=== PATIENT | female | born 1955 | race Two or more races ===

== ENCOUNTER 2025-10-24 09:29 | Emergency (ER) | payer MEDICARE, MEDICAID, SELFPAY ==
[2025-10-24 09:30] VITALS: BMI 25.6
[2025-10-24 09:40] VITALS: BP 133/84; PULSE 100; RESP 18; TEMP 36.6; O2SAT 97
--- NOTE | 2025-10-24 09:59 | PD.EDRME ---
Rapid Medical Screening Exam RME Chief Complaint: Eye Problems Time Seen by Provider: 10/24/25 09:48 Vital signs: Vital Signs Temperature 97.8 F 10/24/25 09:40 Pulse Rate 100 10/24/25 09:40 Respiratory Rate 18 10/24/25 09:40 Blood Pressure 133/84 H 10/24/25 09:40 Pulse Oximetry (%) 97 10/24/25 09:40 Oxygen Delivery Method Room Air 10/24/25 09:40 Exam: error Clinical Impression: error Review of System (Uro) Const All systems reviewed & no additional complaints except as documented
--- NOTE | 2025-10-24 12:50 | PC.CC ---
Addendum entered by Yanick Brown RN 10/24/25 13:46: 1330: spoke to ED ELLIOTT Montes De Oca, transfer request status update provided. Ed tracker and notes with outpatient information. Addendum entered by Yanick Brown RN 10/24/25 13:28: 1317: Camilla ramírez/ EILEEN WARREN called back. She spoke to CHRISTOPHER Asher for EMTALA. Peer to peer w/ Dr. Shah completed. Pt to f/u with him on Sunday as outpatient. Pt to call [phone] on Sunday. Address is [address] [place], [place] [address] [place], no ophthal service 1259: spoke to Gulshan desiree/ [facility], no ophthal service 1258: called [facility], left 1256: Lara ramírez/ KELVIN no ophthal service Original Note: 1237: called [facility], left VM 1236: called [facility], left VM 1236: Clinicals sent to [facility], NEHEMIAH, , [facility] 1233: received call from Baldemar Asher for transfer request for ophtalmology for poss retinal detachment.
--- NOTE | 2025-10-24 12:55 | EDNOTE_ITS ---
<Statement entered by Maria G Ornelas MD - 10/24/25 17:38> As co-signing physician, I was present and available for consult prn. I concur with the plan and care as documented by the midlevel provider. ED Eye Problem RME/HPI General Chief complaint: Eye Problems Stated complaint: RIGHT BLURRED VISION SINCE WED Time Seen by Provider: 10/24/25 09:48 Arrival date/time: 10/24/25 09:29 RME / HPI RME / HPI Narrative: 70-year-old female who is complaining of right eye blurriness which started 5 days ago relatively painless associated with visual changes which she describes as looking through a telescope, seeing shadows and a curtain closing. Denies fever, rash, speech changes, vertigo, chest pain, shortness of breath, headache, nausea, vomiting, numbness, tingling, weakness. Patient has a past medical history of hypertension, diabetes Related Data Home Medications ?Medication ?Instructions ?Recorded ?Confirmed Cyclobenzaprine * (FLEXERIL *) ##90 07/15/15 Hydrocodone Bit/Acetaminophen ##90 07/15/15 (Hydrocodone-Apap 5/325 Tablet) Multivitamins * (CENTRUM *) 1 tab PO QDAY #0 tabs 01/24 aripiprazole 10 mg tablet (Abilify) ##30 07/15/15 lisinopril 20 mg tablet ##30 07/15/15 paroxetine HCl 10 mg tablet ##30 07/15/15 doxycycline hyclate 100 mg capsule 100 mg PO BID #0 ca ps 07/29/15 (Vibramycin) metronidazole 250 mg tablet 250 mg PO QID #0 mg (Flagyl) Previous Rx's ?Medication ?Instructions ?Recorded albuterol sulfate 90 mcg/actuation 2 puff inhalation Q 6H PRN 10/29/23 aerosol inhaler (Ventolin HFA) shortness of breath or wheezing #8.5 grams benzonatate 100 mg capsule 100 mg PO TID #14 caps 10/12 07/04 Allergies Allergy/AdvReac Type Severity Reaction Status Date / Time No Known Allergies Allergy Unverified 10/24/25 11:50 ED Exam Narrative Physical exam: Constitutional: Patient alert and oriented. Well appearing. No acute distress. Not toxic appearing. Head: Normocephalic, atraumatic. Eyes: Tonometry: 12 mmHG is IOP for the right eye. Periorbital regions normal to inspection and palpation bilaterally unless otherwise noted. Conjunctiva clear bilaterally unless otherwise noted. Sclera anicteric bilaterally. Pupils equal, round, and reactive to light bilaterally. Extraocular movements intact bilaterally. Visual felipe intact by confrontation bilaterally. No gross hyphema or hypopyon bilaterally. No globe tenderness to palpation bilaterally. Mouth/Throat: Mucous membranes moist. No stridor or muffled voice. No trismus. Handling secretions without difficulty. Airway widely patent. Neck: Supple. Trachea midline. No JVD. No nuchal rigidity. Normal range of motion. Respiratory: Normal effort. No accessory muscle use or respiratory distress. Lungs clear to auscultation bilaterally without rhonchi, wheezes, or crackles. Cardiovascular: RRR. Normal S1/S2. No murmurs or rubs. Radial pulses intact bilaterally. Abdomen: Soft. Non-distended. Non-tender throughout. No pulsatile mass. No guarding or rebound. Negative Emanuel?s sign. Negative McBurney?s point tenderness. Negative Rovsing?s. Back: No midline tenderness or step-offs. No CVA tenderness to palpation bilaterally. Upper Extremities: No gross deformities. Lower Extremities: No gross deformities. No edema or calf tenderness. Neuro: Speech normal. No gross motor or sensory deficits to upper or lower extremities bilaterally. GCS 15. CN II?XII grossly intact. Skin: Warm, dry, normal color. Psych: Normal affect. Cooperative. Normal insight. Course Quality Measures none Orders Category Date Time Status CT Screening NOW Care 10/24/25 13:06 Active EKG (ED ONLY) *Do not use* NOW Care 10/24/25 13:06 Completed Insert IV NOW Care 10/24/25 13:05 Active Insert IV NOW Care 10/24/25 13:50 Completed Slit Lamp to Bedside X1 Care 10/24/25 10:02 Active Tonometer to Bedside X1 Care 10/24/25 12:25 Completed Visual Acuity NOW Care 10/24/25 10:02 Completed Visual Acuity NOW Care 10/24/25 12:25 Completed Referral - Affiliate Manager Stat Cons 10/24/25 12:[address] angio carotid w head w Stat Exams 10/24/25 13:07 Completed EKG (ED Only) Stat Exams 10/24/25 13:05 Draft C-Reactive Protein Stat Lab 10/24/25 13:48 Completed CBC Stat Lab 10/24/25 13:48 Completed CMP [Comprehensive Metabolic Panel] Stat Lab 10/24/25 13:48 Completed INR [Prothrombin Time with INR] Stat Lab 10/24/25 13:48 Completed Sed Rate (ESR) Stat Lab 10/24/25 13:48 Completed Fluorescein Sodium [Bio-Janice] Med 10/24/25 12:05 Discontinued 1 mg RIGHT EYE X1 ONE Proparacaine Op Lis 0.5% [Alcaine Op Lis 0.5%] Med 10/24/25 11:49 Discontinued See Dose Instructions RIGHT EYE X1 ONE Reevaluation(s) Reevaluation #1: At the time of reassessment prior to discharge, the patient remains alert and oriented ?3 with GCS 15. Vitals are normal, pain is controlled, and the patient is tolerating oral intake without nausea or vomiting. The patient is agreeable to discharge and verbalizes understanding of the diagnosis, studies, treatment plan, medications (including side effects/precautions), and strict ER return precautions as discussed in the ED. All concerns were addressed, and the patient is comfortable with the plan. Time: 17:03 Vital Signs Vital signs: Vital Signs Temperature 97.8 F 10/24/25 09:40 Pulse Rate 100 10/24/25 09:40 Respiratory Rate 18 10/24/25 09:40 Blood Pressure 133/84 H 10/24/25 09:40 Pulse Oximetry (%) 97 10/24/25 09:40 Oxygen Delivery Method Room Air 10/24/25 09:40 PROCEDURES: EKG Interpretation #1: Date of EK10/24/25 Time of EK:14 Rate: 97 Interpretation: Interpreted by me EKG Impression: Normal sinus rhythm Additional EKG comment: No ST elevation nonspecific ST abnormalities, normal axis Eye MDM Narrative MDM Narrative:: 70-year-old female with past medical history of hypertension, diabetes presents to the ER complaining of relatively painless right eye vision loss x 5 days. Concern for vitreous hemmorhage causing vitreous detachment vs retinal detachment I considered painful causes of vision loss as well however pt is not c/o significant pain I considered CVA however NIHSS 0 and TNK not indicated given chronicity of symptoms Consult appreciated with opthalmology who advised they will see pt on Sunday in their office and no emergent transfer indicated at this time Patient educated about plan for follow-up, strict ER return precautions precautions advised and given chronicity of symptoms I suspect that this is reasonable follow-up Patient data External records reviewed:: None Clinical information provided by:: patient Social determinants that could affect healthcare access:: none Patient has the following chronic illnesses:: As noted How is presenting disease/condition affected by chronic disease/condition?: uneffected by Evaluation data The following diagnostics were reviewed and interpreted by me:: other (specify) Lab and/or radiology exams considered but not ordered:: Additional Labs and radiology considered, but not ordered as they were not clinically indicated at this time. Interpretation Summary: Corrected calcium minimally elevated 10.3 however remainder of CBC, CMP, ESR, CRP, INR within normal limits without severe metabolic or electrolyte abnormality EKG without acute ischemia or arrhythmia CT angio head and neck without large vessel occlusion or dissection Medications / Prescriptions Medications or Prescriptions considered but not ordered:: I ordered medications based on the patient?s clinical needs and assessment, as documented in the chart. For medications not prescribed, they were not indicated for the patient's current condition, and I determined they were unnecessary at this time to avoid potential risks or complications. Medication administrations:: Medication Administration History Discontinued Medications Fluorescein Sodium (Fluorescein Sod 1 Mg Strp) 1 mg RIGHT EYE X1 ONE Stop: 10/24/25 12:06 Last Admin: 10/24/25 14:19 Dose: Not Given Documented By: BD Non-Admin Reason: Cancelled by Provider Proparacaine HCl (Proparacaine Op Lis 0.5% 15 Ml Btl) 0 drop RIGHT EYE X1 ONE Stop: 10/24/25 11:50 Last Admin: 10/24/25 14:19 Dose: Not Given Documented By: BD Non-Admin Reason: Cancelled by Provider As noted Consultations Consultation(s) initiated? (list below): Yes Consultation #1 (Physician, Specialty, Details): Dr. Ornelas, Supervising physician, advised order occular US and initiate transfer for higher level of care Time: 12:45 Consultation #2 (Physician, Specialty, Details): Camilla with transfer center who attempted transfer for me to Dr. Alyssa layton Opthalmology who advised he will see have one of his retinal specialist colleagues see her on Sunday if she calls his office number at [phone], jsoe juan pierre is [facility] [address] [place] [address] in [place]. He advised no emergent transfer is necessary. Time: 13:21 Diagnosis Eye Problem Differential Diagnosis: other Most likely diagnosis given after review of the tests above:: Acute vision loss concern for retinal detachment Admission Indicated Admission indicated?: not indicated Explain why admission is indicated or not indicated:: Escalation of care including admission/observation considered but I decided to discharge because based on the overall clinical presentation, and after consideration of the patient's course in the emergency department and plan for outpatient management, I believe that neither further observation nor inpatient care is required at this time. Admission Request Was there a request for admission?: No Disposition Plan Disposition Plan: Discharge Discharge Attestation Discharge Attestation: The patient and all family members were given an opportunity to ask questions and understood the discharge instructions. Discharge instructions specifically effects, indications for sooner follow up or return to the emergency department, and the expected course of current diagnosis. Patient condition: Stable Discharge Plan Plan Patient Disposition: HOME (Self Care) Patient condition on transfer: Stable Prescriptions/Referrals Prescriptions/Med Rec: No Action paroxetine HCl 10 MG tablet Qty: 30 lisinopril 20 MG tablet Qty: 30 aripiprazole [Abilify] 10 MG tablet Qty: 30 Cyclobenzaprine * (FLEXERIL *) 10 MG tablet Qty: 90 Hydrocodone Bit/Acetaminophen (Hydrocodone-Apap 5/325 Tablet) 1 UDTAB tablet Qty: 90 Multivitamins * (CENTRUM *) 1 EACH tablet 1 tab PO QDAY Qty: 0 doxycycline hyclate [Vibramycin] 100 MG capsule 100 mg PO BID Qty: 0 Patient Comments: FOR INFECTION metronidazole [Flagyl] 250 MG tablet 250 mg PO QID Qty: 0 Patient Comments: FOR INFECTION benzonatate 100 mg capsule 100 mg PO TID Qty: 14 0RF albuterol sulfate [Ventolin HFA] 90 mcg/actuation HFA aerosol inhaler 2 puff inhalation Q6H PRN (Reason: shortness of breath or wheezing) Qty: 8.5 0RF Referrals: Jovanni Fraire [Primary Care Provider] - In 1 week Problem List Clinical Impression: Loss, vision, sudden Patient/Caregiver Discharge Instructions Education Materials: Understanding Vision Problems Additional Instructions: Return to the Emergency Room immediately for any new, worsening, continuing symptoms or any concerns at all. I am concerned you may have a retinal detachment, this can cause permanent vision loss, please go to Dr. Hinkle's office on Sunday, he is expecting you, but you need to call him first. If your vision worsens at all please return to ER before this. Call Dr. Hinkle Opthalmology [facility] [address] HINKLE [phone] [place], [place] Print Language: Wolof Stand Alone Forms: Alyson Award Info., Patient Portal Info Letter PA/[employer]ILE[employer]AP SUPERVISOR Supervising Physician PA/[employer]ILE[employer]UNDR[employer] SUPERVISOR Supervising Physician: Dr. ORNELAS
[2025-10-24 13:00] VITALS: BP 133/75; PULSE 95; RESP 16; TEMP 37; O2SAT 97
--- NOTE | 2025-10-24 13:05 | EKG_ITS ---
[facility] Test Date: 2025-10-24 Pat Name: MER[facility] LYON Department: Room: - Gender: Female Magistrate Assistant: : [id number] Requested By: Baldemar Contreras Order Number: [id number] Reading MD: Baldemar Contreras Measurements Intervals Dana Rate: 97 P: 38 OH: 177 QRS: 12 QRSD: 80 T: 1 QT: 340 QTc: 433 Interpretive Statements SINUS RHYTHM No previous ECG available for comparison /store/S0/[id number]/[id number].pdf
--- NOTE | 2025-10-24 13:07 | XR_ITS ---
Examination: CTA carotids with intravenous contrast CTA brain, head with intravenous contrast. 2-D sagittal, coronal reconstructions. 3-D reconstructions. Exam date and time: October 24, 2025, 1501 hours INDICATIONS: Stroke alert, onset right eye vision loss beginning 1 week ago CTDI: vol (mGy) 17.6 DLP: (mGycm) 378 Technique: Multiple CTA axial brain, head carotid images post intravenous contrast injection 75 cc, [id number]. 2-D sagittal, coronal reconstructions. 3-D reconstructions, 3-D post processing including vascular maximum intensity projection images. Low dose protocols were performed. One or more of the following dose reduction techniques were used; automated exposure control, adjustment of the mA and/or KV according to patient size, use of iterative reconstruction technique. Findings: Numerous subcentimeter thyroid nodules No significant common carotid carotid bifurcation or internal carotid artery stenoses. Dominant right vertebral artery in the neck with no critical stenoses Intracranial vertebral arteries basilar artery posterior cerebral artery branches fill with no large vessel occlusions Petrous juxtasellar portions of internal carotid arteries M1 segments middle cerebral arteries middle cerebral artery trifurcation vessels and anterior cerebral arteries fill with no large vessel occlusions IMPRESSION: Numerous subcentimeter thyroid nodules No significant neck arterial stenoses No cerebral large vessel arterial occlusions or thrombus
[2025-10-24 14:09] LABS: Basophils # (Auto) 0.1 Thou/mm3 (0.0-0.2); Basophils % (Auto) 1 % (0-2.5); Eosinophils # (Auto) 0.1 Thou/mm3 (0.0-0.5); Eosinophils % (Auto) 1 % (0-10); Hematocrit 44.0 % (36.0-46.0); Hemoglobin 14.7 g/dL (12.0-16.0); Immature Granulocytes Auto 0.03 Thou/mm3 (0.00-0.00); Lymphocytes # (Auto) 4.0 Thou/mm3 (1.0-4.8); Lymphocytes % (Auto) 38 % (10-50); Mean Corpuscular HGB Conc 33.4 g/dl (31.0-37.0); Mean Corpuscular Hemoglobin 30.3 pg (25.0-35.0); Mean Corpuscular Volume 91 fL (80-100); Monocytes # (Auto) 0.5 Thou/mm3 (0.0-0.8); Monocytes % (Auto) 4 % (0-12); Neutrophils # (Auto) 5.8 Thou/mm3 (1.8-7.7); Neutrophils % (Auto) 55 % (37-80); Nucleated Red Blood Cell # 0.00 Thou/mm3 (0.00-0.00); Nucleated Red Blood Cell % 0 /100 WBC (0); Platelet Count 278 Thou/mm3 (140-440); RDW Standard Deviation 40.8 fL (36.4-46.3); Red Blood Count 4.85 Miln/mm3 (4.00-5.20); White Blood Count 10.5 Thou/mm3 (3.6-11.0)
[2025-10-24 14:26] LABS: INR 1.0 (0.9-1.3); Prothrombin Time 10.9 Seconds (9.0-12.2)
[2025-10-24 14:32] LABS: Alanine Aminotransferase 20 U/L (10-49); Albumin, Serum 5.1 gm/dL (3.4-4.8); Albumin/Globulin Ratio 1.8 (1.2-2.2); Alkaline Phosphatase 85 U/L (46-116); Anion Gap 11 (7-16); Aspartate Amino Transferase 24 U/L (0-34); BUN/Creatinine Ratio 18 Ratio (12-20); Bilirubin,Total 0.8 mg/dL (0.3-1.2); Blood Urea Nitrogen 14 mg/dL (9-23); C-Reactive Protein < 0.5 mg/dL (0.0-0.9); Calcium 10.3 mg/dL (8.3-10.6); Calcium (Corrected) 10.3 mg/dL (8.5-10.1); Carbon Dioxide 26.6 mMol/L (20.0-31.0); Chloride 105 mMol/L (98-107); Creatinine (Component) 0.8 mg/dL (0.6-1.3); Estimated Creatinine Clearance 58.1 mL/min (>60); Globulin 2.8 gm/dL (2.3-3.5); Glucose 81 mg/dL (74-106); Osmolality,Calculated 284 (275-295); Potassium 4.2 mMol/L (3.4-5.1); Sodium 143 mMol/L (136-145); Total Protein 7.9 gm/dL (5.7-8.2); eGFR > 60 See Note
[2025-10-24 14:36] LABS: Sed Rate (ESR) 13 mm/hr (0-30)
[2025-10-24 16:08] VITALS: BP 118/89; PULSE 100; RESP 16; TEMP 36.8; O2SAT 97
[2025-10-24 18:36] VITALS: BP 118/78; PULSE 99; RESP 16; TEMP 36.6; O2SAT 97
[2025-10-24 18:59] VITALS: BP 133/84; PULSE 99; RESP 17; TEMP 36.7; O2SAT 99
--- NOTE | 2025-10-25 01:22 | PRELIM_ITS ---
CT angiogram of the head and neck with intravenous contrast (axial sections with sagittal and coronal reformats) 3D/MIP reformats are provided: October 24, 2025 1501 hours Clinical History: Right eye vision loss. Comparison: None. Findings: Head: The bilateral internal carotid, middle and right anterior cerebral arteries are patent. The A1 segment of the left anterior cerebral artery is hypoplastic. The intracranial vertebral arteries are patent. The vertebrobasilar junction, basilar and posterior cerebral arteries are patent. No evidence of large vessel occlusion, critical stenosis or aneurysm. Neck: The aortic arch to the extent visualized as well as the origins of the right brachiocephalic, left common carotid, and left subclavian arteries are patent. There is a partially calcified plaque in the right carotid bulb causing [id number] stenosis (approximately 70% narrowing). There are small calcifications in the left carotid bulb without significant stenosis. The left common carotid, bilateral internal and external carotid arteries are patent. The origins of the vertebral arteries are unremarkable. The right vertebral artery is dominant. No evidence of vascular occlusion, dissection or aneurysm. There are subcentimeter hypodense nodules in the thyroid. Degenerative changes are identified in the spine. There is fusion of C2, C3 and C4 vertebrae, which may be developmental. There is also fusion of C7, T1 and T2 vertebrae. There are laminectomy changes in the cervical spine. There is levoscoliosis of the cervical spine. Impression: Head: 1. No evidence of large vessel occlusion, critical stenosis or aneurysm. Neck: 2. No evidence of vascular occlusion, dissection or aneurysm. 3. Partially calcified plaque in the right carotid bulb causing [id number] stenosis (approximately 70% narrowing). 4. Other findings as described above. Report Electronically Signed By: Baljinder Markham 10/25/2025 1:22:20 AM [EST]
== END 2025-10-24 19:00 | disposition home or self-care (01) ==
PROVIDERS: Physician Assistant; Emergency Provider Emergency Medicine; PCP Family Medicine
DX: H53.8 Other visual disturbances (principal); I10 Essential (primary) hypertension
CPT/HCPCS: 36415; 70496; 70498; 80053; 85025; 85610; 85652; 86140; 93005; 99283; A4649; Q9967